=== PATIENT | female | born 1990 | race Two or more races ===

== ENCOUNTER → 2021-11-09 | Outpatient (CLI) | payer BC ==
[2021-11-09 17:14] LABS: BASO # 0.1 10^3/uL (0.0-0.2); BASO % 0.5 % (0.0-1.0); EOS # 0.2 10^3/uL (0.0-0.5); EOS % 1.8 % (0.0-3.0); HEMATOCRIT 42.8 % (36.0-47.0); HEMOGLOBIN 14.6 g/dl (12.0-15.5); LYMPH # 2.5 10^3/uL (1.5-5.0); MEAN CORPUSCULAR HEMOGLOBIN 30.1 pg (27.0-33.0); MEAN CORPUSCULAR HGB CONC 34.1 g/dl (32.0-36.5); MEAN CORPUSCULAR VOLUME 88.2 fl (80.0-96.0); MONO # 0.6 10^3/uL (0.0-0.8); MONO % 4.8 % (2.0-8.0); NEUTROPHILS % 70.3 % (36.0-66.0); PLATELET COUNT, AUTOMATED 267 10^3/uL (150-450); RED BLOOD COUNT 4.85 10^6/uL (4.00-5.40); WHITE BLOOD COUNT 11.4 10^3/uL (4.0-10.0)
[2021-11-09 18:52] LABS: GC DNA AMPLIFICATION NEGATIVE (NEGATIVE)
[2021-11-10 02:05] LABS: HIV 1&2 SCREEN CENTAUR NEGATIVE (NEGATIVE)
== END ==
LOC: M PLALAB 14:42
PROVIDERS: ATTEND Advanced Practice Midwife
DX: Z34.92 Encounter for supervision of normal pregnancy, unspecified, second trimester (principal); Z3A.00 Weeks of gestation of pregnancy not specified

== ENCOUNTER → 2022-01-12 | Outpatient (CLI) | payer BC, OTHER | LOC: M WHC 12:37 | PROVIDERS: ATTEND Obstetrics & Gynecology | DX: Z34.92 Encounter for supervision of normal pregnancy, unspecified, second trimester (principal) ==

== ENCOUNTER → 2022-02-15 | Outpatient (CLI) | payer BC, OTHER ==
[2022-02-15 14:19] LABS: HEMATOCRIT 37.7 % (36.0-47.0); HEMOGLOBIN 12.7 g/dl (12.0-15.5); MEAN CORPUSCULAR HEMOGLOBIN 29.9 pg (27.0-33.0); MEAN CORPUSCULAR HGB CONC 33.7 g/dl (32.0-36.5); MEAN CORPUSCULAR VOLUME 88.7 fl (80.0-96.0); PLATELET COUNT, AUTOMATED 230 10^3/uL (150-450); RED BLOOD COUNT 4.25 10^6/uL (4.00-5.40); WHITE BLOOD COUNT 11.9 10^3/uL (4.0-10.0)
[2022-02-15 16:31] LABS: GC DNA AMPLIFICATION NEGATIVE (NEGATIVE)
== END ==
LOC: M PLALAB 09:40
PROVIDERS: ATTEND Obstetrics & Gynecology
DX: O34.211 Maternal care for low transverse scar from previous cesarean delivery (principal)

== ENCOUNTER → 2022-04-26 | Outpatient (REF) | payer BC, OTHER | LOC: M SFHCWAGY 16:44 | PROVIDERS: ATTEND Advanced Practice Midwife | DX: Z34.93 Encounter for supervision of normal pregnancy, unspecified, third trimester (principal) ==

== ENCOUNTER 2022-05-31 00:14 | Inpatient (IN) | payer BC, OTHER ==
[~2022-05-31] VITALS: Ht 154.9 cm; Wt 105.3 kg
[2022-05-31] VITALS (7 sets, daily range): BP systolic 100–153; BP diastolic 58–84
[~2022-05-31 00:14] MED LIST: PRENTAB53 PO
[2022-05-31] MEDS ORDERED: BUTORPHANOL 2 MG/ML 1ML VIAL IV ONE (00:45)
[2022-05-31] MEDS ORDERED: PROMETHAZINE 25MG/ML 1ML VIAL IV ONE (00:45)
[2022-05-31] MEDS ORDERED: HOME MED LIST COMPLETE! XX SCH (08:05)
[2022-05-31] MEDS: PRENATAL VITAMINS CHEWABLE TABLET PO SCH (09:00)
[2022-05-31] MEDS ORDERED: LACTATED RINGER'S 1000 ML IV STA (09:42)
[2022-05-31] MEDS ORDERED: BICITRA 30ML SOLN UDC PO ONE (09:45)
[2022-05-31] MEDS ORDERED: TRANEXAMIC ACID INJection 1,000 MG in NS 100 ML IV PRN (09:45)
[2022-05-31] MEDS ORDERED: OXYTOCIN DRIP 30 UNITS in IV 1 EA IV PRN ×4 (09:45)
[2022-05-31] MEDS ORDERED: ceFAZolin SOD 2 GM in IV 1 EA IV ONE (09:45)
[2022-05-31] MEDS ORDERED: LR 1,000 ML IV SCH ×2 (09:45→12:20)
[2022-05-31] MEDS ORDERED: METHYLERGONOVINE MALEATE 0.2MG/ML 1ML VIAL IM PRN (09:45)
[2022-05-31] MEDS ORDERED: CARBOPROST TROMETHAMINE 250 MCG/ML AMP IM PRN (09:45)
[2022-05-31 09:51] LABS: HEMATOCRIT 43.7 % (36.0-47.0); HEMOGLOBIN 14.5 g/dl (12.0-15.5); MEAN CORPUSCULAR HEMOGLOBIN 29.2 pg (27.0-33.0); MEAN CORPUSCULAR HGB CONC 33.2 g/dl (32.0-36.5); MEAN CORPUSCULAR VOLUME 88.1 fl (80.0-96.0); PLATELET COUNT, AUTOMATED 183 10^3/uL (150-450); RED BLOOD COUNT 4.96 10^6/uL (4.00-5.40); WHITE BLOOD COUNT 16.1 10^3/uL (4.0-10.0)
[2022-05-31 09:58] LABS: TOTAL PROTEIN,RANDOM URINE 35.9 MG/DL (0.0-14.0)
[2022-05-31 09:58] LABS: ALBUMIN 2.7 G/DL (3.2-5.2); ALKALINE PHOSPHATASE 177 U/L (46-116); ALT/SGPT 19 U/L (7.0-40); AST/SGOT 26 U/L (<34); BILIRUBIN,TOTAL 0.3 MG/DL (0.3-1.2); BLOOD UREA NITROGEN 13 MG/DL (9-23); CALCIUM LEVEL 8.9 MG/DL (8.5-10.1); CARBON DIOXIDE LEVEL 21 MMOL/L (20-31); CHLORIDE LEVEL 107 MMOL/L (98-107); CREATININE FOR GFR 0.82 MG/DL (0.55-1.30); GLOMERULAR FILTRATION RATE > 60.0 (>60); GLUCOSE, FASTING 88 MG/DL (60-100); POTASSIUM SERUM 4.2 MMOL/L (3.5-5.1); SODIUM LEVEL 138 MMOL/L (136-145); TOTAL PROTEIN 6.2 G/DL (5.7-8.2)
[2022-05-31 10:03] LABS: CREATININE,RANDOM URINE 139.8 MG/DL
[2022-05-31] MEDS ORDERED: ePHEDrine SULFATE 25 MG/5 ML(5MG/ML) SYRINGE As Ordered ONE (10:30)
[2022-05-31] MEDS ORDERED: PHENYLephrine 500MCG 5ML (100MCG/ML) SYRINGE As Ordered ONE (10:30)
[2022-05-31] MEDS ORDERED: MORPHINE PRES-FREE INJ 10 MG/10 ML VIAL As Ordered ONE (10:30)
[2022-05-31] MEDS ORDERED: OXYTOCIN 30UNITS IN 0.9% NaCl 500ML IV BAG As Ordered ONE ×2 (10:33→12:32)
[2022-05-31] MEDS ORDERED: ONDANSETRON 4MG 2ML VIAL As Ordered ONE (11:06)
[2022-05-31] MEDS ORDERED: KETOROLAC 60MG 2ML VIAL As Ordered ONE (11:06)
[2022-05-31] MEDS ORDERED: METOCLOPRAMIDE INJ 10MG/2ML VIAL IV PRN ×2 (12:10→12:20)
[2022-05-31] MEDS ORDERED: ONDANSETRON 4MG 2ML VIAL IV PRN ×2 (12:10→12:20)
[2022-05-31] MEDS ORDERED: DOCUSATE SODIUM 100MG CAPSULE PO PRN (12:10)
[2022-05-31] MEDS ORDERED: OXYTOCIN DRIP 30 UNITS in IV 1 EA IV SCH (12:10)
[2022-05-31] MEDS ORDERED: SIMETHICONE 80MG CHEW TAB PO PRN (12:10)
[2022-05-31] MEDS ORDERED: oxyCODONE 5MG TAB PO PRN ×2 (12:10→12:20)
[2022-05-31] MEDS ORDERED: RHOGAM 300MCG (1500IU) INJ IM SCH (12:10)
[2022-05-31] MEDS: SLF 3 ML SYR IV SCH ×2 (12:20→20:20)
[2022-05-31] MEDS ORDERED: diphenhydrAMINE 50MG/ML VIAL IV PRN (12:20)
[2022-05-31] MEDS ORDERED: fentaNYL 100 MCG/2 ML INJECTION IV PRN (12:20)
[2022-05-31] MEDS ORDERED: NALOXONE INJ 0.4MG/1ML VIAL IV PRN ×2 (12:20)
[2022-05-31] MEDS ORDERED: **NOTE PATIENT COMMENT** MISC XX SCH (12:20)
[2022-05-31] MEDS: KETOROLAC 30 MG/ML 1ML VIAL IV SCH ×2 (17:00→23:49)
[2022-05-31] MEDS: ACETAMINOPHEN 500 MG TAB PO SCH ×2 (18:23→23:49)
[2022-06-01 02:00] VITALS: BP 118/58
[2022-06-01] MEDS: SLF 3 ML SYR IV SCH (05:06)
[2022-06-01] MEDS: KETOROLAC 30 MG/ML 1ML VIAL IV SCH (05:07)
[2022-06-01] MEDS: ACETAMINOPHEN 500 MG TAB PO SCH ×4 (05:07→23:42)
[2022-06-01 06:00] VITALS: BP 139/82
[2022-06-01 08:22] LABS: HEMATOCRIT 33.4 % (36.0-47.0); MEAN CORPUSCULAR HEMOGLOBIN 29.4 pg (27.0-33.0); MEAN CORPUSCULAR HGB CONC 33.8 g/dl (32.0-36.5); PLATELET COUNT, AUTOMATED 149 10^3/uL (150-450); RED BLOOD COUNT 3.84 10^6/uL (4.00-5.40); WHITE BLOOD COUNT 11.7 10^3/uL (4.0-10.0)
[2022-06-01 08:27] LABS: HEMOGLOBIN 11.3 g/dl (12.0-15.5)
[2022-06-01] MEDS: PRENATAL VITAMINS CHEWABLE TABLET PO SCH (09:00)
[2022-06-01 10:00] VITALS: BP 133/83
[2022-06-01] MEDS: IBUPROFEN 600MG TAB PO SCH ×2 (13:30→19:40)
[2022-06-01 14:00] VITALS: BP 124/71
[2022-06-01] MEDS: oxyCODONE 5MG TAB PO PRN (15:04)
[2022-06-01 17:57] VITALS: BP 133/70
[2022-06-01 22:00] VITALS: BP 125/75
[2022-06-02] MEDS: IBUPROFEN 600MG TAB PO SCH ×3 (00:34→13:00)
[2022-06-02 02:00] VITALS: BP 107/61
[2022-06-02 05:26] VITALS: BP 115/72
[2022-06-02] MEDS ORDERED: ACETAMINOPHEN 500 MG TAB As Ordered ONE (06:10)
[2022-06-02] MEDS: ACETAMINOPHEN 500 MG TAB PO SCH ×2 (06:15→12:00)
[2022-06-02] MEDS ORDERED: oxyCODONE 5MG TAB As Ordered ONE (06:49)
[2022-06-02] MEDS ORDERED: IBUPROFEN 600MG TAB As Ordered ONE (06:50)
[2022-06-02] MEDS: oxyCODONE 5MG TAB PO PRN (06:53)
[2022-06-02] MEDS ORDERED: ACET-683 PO (07:40)
[2022-06-02] MEDS ORDERED: OXYC-517 PO (07:40)
[2022-06-02] MEDS ORDERED: IBUP-1022 PO (07:40)
[2022-06-02] MEDS ORDERED: COLA100C5 PO (07:40)
[2022-06-02] MEDS: PRENATAL VITAMINS CHEWABLE TABLET PO SCH (09:00)
[2022-06-02] MEDS ORDERED: MEASLES,MUMPS,RUBELLA VACCINE INJ (MMR-II) SC.IMMUN ONE (09:00)
== END 2022-06-02 12:50 | disposition home or self-care (01) | DRG 540 ==
LOC: M LDO 00:14 → M LDI 09:38 → M OBS 14:06
PROVIDERS: ADMIT Obstetrics & Gynecology; ATTEND Obstetrics & Gynecology
PROC: 10D00Z1 Extraction of Products of Conception, Low, Open Approach (ICD-10-PCS; principal; 2022-05-31 10:52)
DX: O34.211 Maternal care for low transverse scar from previous cesarean delivery (principal); Z3A.40 40 weeks gestation of pregnancy; Z37.0 Single live birth

== ENCOUNTER → 2022-08-03 | Outpatient (CLI) | payer BC, OTHER ==
[~2022-08-03] MED LIST changes: +ACET-683 PO; +COLA100C5 PO; +IBUP-1022 PO; +OXYC-517 PO
== END ==
LOC: M PLALAB 10:42
PROVIDERS: ATTEND Obstetrics & Gynecology
DX: Z13.0 Encounter for screening for diseases of the blood and blood-forming organs and certain disorders involving the immune mechanism (principal); Z83.2 Family history of diseases of the blood and blood-forming organs and certain disorders involving the immune mechanism

== ENCOUNTER 2024-03-08 07:23 | Day surgery (SDC) | payer BC ==
[~2024-03-08] VITALS: Ht 154.9 cm; Wt 84.8 kg
[~2024-03-08 07:23] MED LIST changes: +THERTAB52 PO
[2024-03-08 08:05] LABS: HEMATOCRIT 42.1 % (36.0-47.0); HEMOGLOBIN 14.4 g/dl (12.0-15.5); MEAN CORPUSCULAR HEMOGLOBIN 30.3 pg (27.0-33.0); MEAN CORPUSCULAR HGB CONC 34.2 g/dl (32.0-36.5); MEAN CORPUSCULAR VOLUME 88.4 fl (80.0-96.0); PLATELET COUNT, AUTOMATED 273 10^3/uL (150-450); RED BLOOD COUNT 4.76 10^6/uL (4.00-5.40); WHITE BLOOD COUNT 10.7 10^3/uL (4.0-10.0)
[2024-03-08] MEDS ORDERED: fentaNYL 100 MCG/2 ML INJECTION As Ordered ONE (08:50)
[2024-03-08] MEDS ORDERED: MIDAZOLAM INJ 2MG/2ML VIAL As Ordered ONE (08:50)
[2024-03-08] MEDS ORDERED: ONDANSETRON 4MG 2ML VIAL As Ordered ONE (08:51)
[2024-03-08] MEDS ORDERED: ROCURONIUM BROMIDE 50MG/5ML VIAL As Ordered ONE (08:52)
[2024-03-08] MEDS ORDERED: propofoL 200 MG/20 ML VIAL As Ordered ONE (09:28)
[2024-03-08] MEDS ORDERED: fentaNYL 100 MCG/2 ML INJECTION IV PRN (10:15)
[2024-03-08] MEDS ORDERED: diphenhydrAMINE 50MG/ML VIAL IV PRN (10:15)
[2024-03-08] MEDS ORDERED: HYDROMORPHONE HCL 0.5 MG/ 0.5 ML SYRINGE IV PRN (10:15)
[2024-03-08] MEDS ORDERED: oxyCODONE 5MG TAB PO PRN (10:15)
[2024-03-08] MEDS ORDERED: PERC5TAB12 PO (10:32)
[2024-03-08] MEDS: MEPERIDINE 25 MG/ML 1ML VIAL IV PRN (10:52)
[2024-03-08] MEDS: KETOROLAC 30 MG/ML 1ML VIAL IV ONE (10:52)
[2024-03-08] MEDS: ONDANSETRON 4MG 2ML VIAL IV PRN (10:53)
[2024-03-08] MEDS: METOCLOPRAMIDE INJ 10MG/2ML VIAL IV PRN (10:53)
[2024-03-08 12:30] VITALS: BP 119/83; TEMP 97.1; O2SAT 98
== END 2024-03-08 12:40 | disposition home or self-care (01) ==
LOC: M SDC 07:23
PROVIDERS: ATTEND Obstetrics & Gynecology
DX: Z30.2 Encounter for sterilization (principal); N73.6 Female pelvic peritoneal adhesions (postinfective); F17.290 Nicotine dependence, other tobacco product, uncomplicated
CPT/HCPCS: 36415; 58661; 81025; 85027; 86850; 86900; 86901; 88302; 88305; J0665; J1100; J1885; J2175; J2250; J2405; J2765; J3010